=== PATIENT | female | born 1950 | race Caucasian/White ===

== ENCOUNTER → 2016-10-23 | Outpatient (CLI) | payer OTHER ==
[~2016-10-23] MED LIST: ALBU8.5H3 INH; BISO1TAB49 PO; CHOL5000 PO; NAPR220C2 PO; OLME40TA PO
[2016-10-23 13:05] LABS: ASPARTATE AMINO TRANSFERASE 14 U/L (15-37); BLOOD UREA NITROGEN 22 mg/dL (7-18)
== END | disposition home or self-care (01) ==
LOC: STAR 11:15
PROVIDERS: ATTEND Obstetrics & Gynecology Female Pelvic Medicine and Reconstructive Surgery
DX: Z01.818 Encounter for other preprocedural examination (principal); N81.3 Complete uterovaginal prolapse; N39.3 Stress incontinence (female) (male)
CPT/HCPCS: 36415; 80053; 93005

== ENCOUNTER 2016-10-30 08:50 | Day surgery (SDC) | payer OTHER ==
[~2016-10-30] VITALS: Ht 172.7 cm; Wt 106.6 kg
[~2016-10-30 08:50] MED LIST changes: -ALBU8.5H3 INH; +ALBU8.5H8 INH; +BUPIVACAINE/PF 0.25% ONE; +EPINEPHRINE 1 MG/ML, 1ML ONE; +NEOMY/POLYMYXIN B GU IRR. 1 ML IRRIG ONE; -OLME40TA PO; +OLME40TA12 PO
[2016-10-30] MEDS ORDERED: LACTATED RINGERS 1,000 ML IV SCH (09:20)
[2016-10-30] MEDS ORDERED: FENTANYL PF 100 MCG/2ML ONE (10:31)
[2016-10-30] MEDS ORDERED: MIDAZOLAM 1 MG/ML, 2ML ONE (10:31)
[2016-10-30] MEDS ORDERED: SCOPOLAMINE PATCH, 1.5MG PATCH.TD72 TD ONE ×2 (11:28)
[2016-10-30] MEDS ORDERED: ROCURONIUM 10 MG/ML ONE (11:33)
[2016-10-30] MEDS ORDERED: NEOSTIGMINE 1 MG/ML, 10ML ONE (11:33)
[2016-10-30] MEDS ORDERED: DEXAMETHASONE 4 MG/ML, 1ML ONE (11:33)
[2016-10-30] MEDS ORDERED: PROPOFOL 10 MG/ML, 20ML ONE (11:33)
[2016-10-30] MEDS ORDERED: METOCLOPRAMIDE 5 MG/ML, 2ML ONE (11:33)
[2016-10-30] MEDS ORDERED: CEFOTETAN 2 GM ONE (11:33)
[2016-10-30] MEDS ORDERED: ONDANSETRON 2MG/ML, 2ML ONE (11:33)
[2016-10-30] MEDS ORDERED: KETOROLAC 30 MG/1 ML ONE (11:33)
[2016-10-30] MEDS ORDERED: KETAMINE 10 MG/ML, 20ML ONE (11:33)
[2016-10-30] MEDS ORDERED: ALBUTEROL SULFATE 2.5 MG/3 ML NPPB PRN (12:00)
[2016-10-30] MEDS ORDERED: ACETAMINOPHEN 325 MG TABLET PO PRN (12:00)
[2016-10-30] MEDS ORDERED: HYDROmorphone 1 MG/ML, 1ML IV PRN (12:00)
[2016-10-30] MEDS ORDERED: FENTANYL PF 100 MCG/2ML IV PRN (12:00)
[2016-10-30] MEDS ORDERED: OXYcodone 5 MG/5 ML ORAL.SOL UDC PO PRN (12:00)
[2016-10-30] MEDS ORDERED: hydrALAzine 20 MG/ML, 1ML IV PRN (12:00)
[2016-10-30] MEDS ORDERED: MEPERIDINE/PF 25MG/0.5ML IVPush PRN (12:00)
[2016-10-30] MEDS ORDERED: PROMETHAZINE 25 MG/ML, 1ML IV PRN (12:00)
[2016-10-30] MEDS ORDERED: ONDANSETRON 2MG/ML, 2ML IVPush PRN (12:00)
[2016-10-30] MEDS ORDERED: LABETALOL 5MG/ML, 20ML IV PRN (12:00)
[2016-10-30] MEDS ORDERED: HYDROmorphone 1 MG/ML, 1ML ONE ×2 (12:12→13:22)
== END 2016-10-30 17:20 ==
LOC: OUT 08:50
PROVIDERS: ATTEND Obstetrics & Gynecology Female Pelvic Medicine and Reconstructive Surgery
DX: N81.3 Complete uterovaginal prolapse (principal); R32 Unspecified urinary incontinence; D25.9 Leiomyoma of uterus, unspecified; J45.909 Unspecified asthma, uncomplicated; I10 Essential (primary) hypertension
CPT/HCPCS: 57288; 58552; 88307; C1771; J0171; J1100; J1170; J1885; J2250; J2405; J2704; J2710; J2765; J3010; J3490; J7120; S0074

== ENCOUNTER → 2016-12-12 | Outpatient (CLI) | payer OTHER ==
[~2016-12-12] MED LIST changes: -BUPIVACAINE/PF 0.25% ONE; -EPINEPHRINE 1 MG/ML, 1ML ONE; -NEOMY/POLYMYXIN B GU IRR. 1 ML IRRIG ONE
== END | disposition home or self-care (01) ==
LOC: CFH 10:46
PROVIDERS: ATTEND Specialist
DX: Z12.31 Encounter for screening mammogram for malignant neoplasm of breast (principal)
CPT/HCPCS: 77063; G0202

== ENCOUNTER 2017-02-12 06:56 | Day surgery (SDC) | payer OTHER ==
[~2017-02-12] VITALS: Ht 172.7 cm; Wt 108.7 kg
[2017-02-12] MEDS ORDERED: EPINEPHRINE 1 MG/ML, 1ML ONE (07:02)
[2017-02-12] MEDS ORDERED: NEOMY/POLYMYXIN B GU IRR. 1 ML IRRIG ONE ×2 (07:02→09:38)
[2017-02-12] MEDS ORDERED: BUPIVACAINE/PF 0.25% ONE (07:02)
[2017-02-12] MEDS ORDERED: LACTATED RINGERS 1,000 ML IV SCH (07:34)
[2017-02-12 07:36] VITALS: BP 152/87
[2017-02-12] MEDS ORDERED: MIDAZOLAM 1 MG/ML, 2ML ONE ×2 (08:04→09:12)
[2017-02-12] MEDS ORDERED: FENTANYL PF 250 MCG/5ML ONE ×2 (08:05→09:12)
[2017-02-12] MEDS ORDERED: LIDOCAINE GEL 2%, 5ML ONE (09:00)
[2017-02-12] MEDS ORDERED: PROPOFOL 10 MG/ML, 20ML ONE ×2 (09:00→09:12)
[2017-02-12] MEDS ORDERED: CEFAZOLIN 1,000 MG ONE (09:12)
[2017-02-12] MEDS ORDERED: DEXAMETHASONE 4 MG/ML, 1ML ONE (09:12)
[2017-02-12] MEDS ORDERED: ONDANSETRON 2MG/ML, 2ML ONE (09:12)
[2017-02-12] MEDS ORDERED: BUPIVACAINE/PF-EPI 0.5% 1:200K INFIL ONE (09:37)
[2017-02-12] MEDS ORDERED: ONDANSETRON 2MG/ML, 2ML IVPush PRN (10:30)
[2017-02-12] MEDS ORDERED: OXYcodone 5 MG/5 ML ORAL.SOL UDC PO PRN (10:30)
[2017-02-12] MEDS ORDERED: LABETALOL 5MG/ML, 20ML IV PRN (10:30)
[2017-02-12] MEDS ORDERED: HYDROmorphone 1 MG/ML, 1ML IV PRN (10:30)
[2017-02-12] MEDS ORDERED: HYDROcodone/APAP 7.5-325MG/15ML UDC PO PRN (10:30)
[2017-02-12] MEDS ORDERED: ACETAMINOPHEN 325 MG TABLET PO PRN (10:30)
[2017-02-12] MEDS ORDERED: FENTANYL PF 100 MCG/2ML IV PRN (10:30)
[2017-02-12] MEDS ORDERED: PROMETHAZINE 25 MG/ML, 1ML IV PRN (10:30)
[2017-02-12] MEDS ORDERED: hydrALAzine 20 MG/ML, 1ML IV PRN (10:30)
[2017-02-12] MEDS ORDERED: ACETAMINOPHEN 650 MG/20.3 ML UDC ONE (10:41)
[2017-02-12] MEDS ORDERED: OXYcodone 5 MG/5 ML ORAL.SOL UDC ONE (10:41)
== END 2017-02-12 12:45 ==
LOC: OUT 06:56
PROVIDERS: ATTEND Obstetrics & Gynecology Female Pelvic Medicine and Reconstructive Surgery
DX: N39.46 Mixed incontinence (principal); N81.89 Other female genital prolapse; J45.909 Unspecified asthma, uncomplicated; Z90.710 Acquired absence of both cervix and uterus; Z98.890 Other specified postprocedural states; I10 Essential (primary) hypertension
CPT/HCPCS: 57265; 57267; 57288; C1781; J0171; J0690; J1100; J2250; J2405; J2704; J3010; J3490; J7120